=== PATIENT | female | born 1995 | race Two or more races ===

== ENCOUNTER 2019-05-21 18:27 | Emergency (ER) | payer MEDICAID ==
[~2019-05-21] VITALS: Ht 149.9 cm; Wt 58.1 kg
--- NOTE | 2019-05-21 19:15 | NUR ---
BIBS FOR C/O N/V DIARRHEA AND ABD PAIN X 5D.
[2019-05-21] MEDS ORDERED: KETOROLAC TROMETHAMINE INJ 30 MG/ML VIAL IV ONE (19:30)
[2019-05-21] MEDS ORDERED: IV NS 0.9% 1,000 ML BAG IV ONE (19:30)
[2019-05-21] MEDS ORDERED: MAG HYDROX/AL HYDROX/SIMETH 30 ML UDC PO ONE (19:30)
[2019-05-21] MEDS ORDERED: ONDANSETRON HCL/PF 4 MG/2 ML VIAL IVP ONE (19:30)
[2019-05-21] MEDS ORDERED: KETOROLAC TROMETHAMINE 15 MG/ML VIAL ONE (19:44)
[2019-05-21] MEDS ORDERED: MAG HYDROX/AL HYDROX/SIMETH 30 ML UDC ONE (19:44)
[2019-05-21] MEDS ORDERED: ONDANSETRON HCL/PF 4 MG/2 ML VIAL ONE (19:44)
[2019-05-21 19:50] LABS: BASOPHILS # (AUTO) 0.1 /CMM (0.0-0.2); BASOPHILS % (AUTO) 0.9 % (0.0-2.0); EOSINOPHILS % (AUTO) 1.6 % (0.0-6.0); HEMATOCRIT 42 % (33-45); HEMOGLOBIN 14.4 g/dL (11.5-14.8); LYMPHOCYTES # (AUTO) 2.9 /CMM (0.8-4.8); MEAN CORPUSCULAR HGB CONC 34 g/dl (31.0-36.0); MEAN CORPUSCULAR VOLUME 90 fL (82-100); MONOCYTES # (AUTO) 0.6 /CMM (0.1-1.30); MONOCYTES % (AUTO) 6.8 % (2.0-12.0); NEUTROPHILS # (AUTO) 5.7 /CMM (1.8-8.9); NEUTROPHILS % (AUTO) 59.7 % (43.0-81.0); PLATELET COUNT (AUTO) 222 /CMM (150-450); WHITE BLOOD COUNT (AUTO) 9.5 K/uL (4.3-11.0)
[2019-05-21 20:02] LABS: CALCIUM, SERUM 8.8 mg/dL (8.5-10.1); CREATININE 0.6 mg/dL (0.6-1.3); POTASSIUM 3.7 mmol/L (3.5-5.1)
[2019-05-21 20:03] LABS: BILIRUBIN,URINE Negative (NEGATIVE); BLOOD, URINE Small Ery/uL (NEGATIVE); COLOR,URINE Yellow (YELLOW); KETONES,URINE Negative (NEGATIVE); LEUKOCYTE ESTERASE ,URINE Negative (NEGATIVE); NITRITE, URINE Negative (NEGATIVE); PROTEIN,URINE Negative (NEGATIVE); UGLUCOSE Negative (NEGATIVE); UROBILINOGEN,URINE 0.2 EU/dL (0.2)
[2019-05-21 20:04] LABS: APPEARANCE,URINE HAZY (CLEAR)
[2019-05-21 20:08] LABS: ALBUMIN 4.1 g/dL (3.4-5.0); BILIRUBIN,DIRECT 0.1 mg/dL (0.0-0.2); BILIRUBIN,TOTAL 0.4 mg/dL (0.2-1.0); TOTAL PROTEIN, SERUM 7.6 g/dL (6.4-8.2)
[2019-05-21 20:28] LABS: BACTERIA,URINE Few /HPF (None Seen); SQUAMOUS EPITHELIAL CELL,UR Few /HPF (None Seen); URINE AMORPHOUS URATE Few /HPF (None Seen)
--- NOTE | 2019-05-21 20:36 | NUR ---
Patient discharged to home in stable condition. Rx & Written and verbal after care instructions given. Patient verbalizes understanding of instruction.
[2019-05-21 20:39] VITALS: BP 121/79
== END 2019-05-21 20:41 | disposition home or self-care (01) ==
LOC: ER 18:27
DX: A08.4 Viral intestinal infection, unspecified (principal); R10.84 Generalized abdominal pain; R11.10 Vomiting, unspecified; R19.7 Diarrhea, unspecified; H00.015 Hordeolum externum left lower eyelid; Z98.890 Other specified postprocedural states
CPT/HCPCS: 36415; 80048; 80076; 81001; 83690; 84703; 85025; 96361; 96374; 96375; 99283; J1885; J2405; J7030; 81000-TC

== ENCOUNTER 2020-01-02 10:56 | Emergency (ER) | payer MEDICAID ==
[~2020-01-02] VITALS: Ht 149.9 cm; Wt 57.2 kg
[2020-01-02 11:16] VITALS: BP 128/92
== END 2020-01-02 12:10 | disposition home or self-care (01) ==
LOC: ER 10:57
DX: L50.8 Other urticaria (principal); Z98.890 Other specified postprocedural states

== ENCOUNTER 2022-06-02 22:57 | Emergency (ER) | payer MEDICAID ==
[~2022-06-02] VITALS: Ht 152.4 cm; Wt 68.0 kg
--- NOTE | 2022-06-03 00:55 | NUR ---
BIBS C/O OF VAGINAL NON-MALODOROUS DISCHARGE AND DYSURIA X1 WEEK. PT AWAKE AND ALERT X 4 BREATHING EVEN AND UNLABORED. PT CHANGED INTO GOWN AND ALL V/S WNL.
--- NOTE | 2022-06-03 00:57 | NUR ---
URINE COLLECTED SENT TO LAB
--- NOTE | 2022-06-03 01:04 | NUR ---
CHAPERONED PELVIC EXAM WITH DR HUNT. GENITAL CULTURES COLLECTED AND SENT TO LAB.
[2022-06-03 01:52] LABS: BILIRUBIN,URINE NEGATIVE (NEGATIVE); COLOR,URINE YELLOW (YELLOW); LEUKOCYTE ESTERASE ,URINE NEGATIVE (NEGATIVE); NITRITE, URINE NEGATIVE (NEGATIVE); PROTEIN,URINE NEGATIVE (NEGATIVE); UGLUCOSE NEGATIVE (NEGATIVE); UROBILINOGEN,URINE 0.2 EU/dL (0.2)
[2022-06-03 05:41] VITALS: BP 130/77
--- NOTE | 2022-06-03 05:41 | NUR ---
Patient discharged to home in stable condition. Written and verbal after care instructions given. Patient verbalizes understanding of instruction.
== END 2022-06-03 05:41 | disposition home or self-care (01) ==
LOC: ER 23:00
DX: R30.0 Dysuria (principal); N89.8 Other specified noninflammatory disorders of vagina
CPT/HCPCS: 84703-TC; 87070-TC; 87110-TC; 87210-TC

== ENCOUNTER 2023-04-19 00:52 | Emergency (ER) | payer MEDICAID ==
[~2023-04-19] VITALS: Ht 149.9 cm; Wt 64.9 kg
--- NOTE | 2023-04-19 01:37 | NUR ---
BIBSELF FOR DYSURIA +VAGINAL DISCHARGE/ITCHING X4 DAYS. AFEBRILE AT TRIAGE AND NO REPORTED FEVERS. V/S WNL. URINE COLLECTED AND SENT TO LAB.
[2023-04-19 02:55] LABS: BACTERIA,URINE Rare /HPF (None Seen); BILIRUBIN,URINE NEGATIVE (NEGATIVE); COLOR,URINE YELLOW (YELLOW); LEUKOCYTE ESTERASE ,URINE 1+ (NEGATIVE); NITRITE, URINE NEGATIVE (NEGATIVE); PH,URINE 7.5 (5.0-8.0); PROTEIN,URINE NEGATIVE (NEGATIVE); RBC,URINE 0-2 /HPF (0-2); SQUAMOUS EPITHELIAL CELL,UR Rare /HPF (None Seen); UGLUCOSE NEGATIVE (NEGATIVE); UROBILINOGEN,URINE 0.2 EU/dL (0.2)
[2023-04-19] MEDS ORDERED: NITR100C PO (03:23)
[2023-04-19] MEDS ORDERED: NITROFURANTOIN/MONOHYDRATE MACROCRYSTALS 100 MG CAPSULE PO ONE (03:30)
[2023-04-19] MEDS ORDERED: NITROFURANTOIN/MONOHYDRATE MACROCRYSTALS 100 MG CAPSULE ONE (03:33)
[2023-04-19 03:37] VITALS: BP 137/96
--- NOTE | 2023-04-19 03:37 | NUR ---
Patient discharged to home in stable condition. Written and verbal after care instructions given. Patient verbalizes understanding of instruction.
== END 2023-04-19 03:37 | disposition home or self-care (01) ==
LOC: ER 01:00
DX: N39.0 Urinary tract infection, site not specified (principal)
CPT/HCPCS: 81001; 84703-TC; 87086-TC